=== PATIENT | female | born 1985 | race Caucasian/White ===

== ENCOUNTER → 2021-08-31 | Outpatient (CLI) | payer BC | LOC: KOH-I 09:39 | DX: M25.552 Pain in left hip (principal); R06.02 Shortness of breath | CPT/HCPCS: 71046; 73502 ==

== ENCOUNTER → 2021-11-09 | Outpatient (CLI) | payer BC | LOC: HEART 5 13:39 | DX: R06.02 Shortness of breath (principal) | CPT/HCPCS: 94010; 94729; 95012 ==

== ENCOUNTER → 2021-11-22 | Outpatient (CLI) | payer BC | LOC: RAD 09:00 | DX: M25.512 Pain in left shoulder (principal) | CPT/HCPCS: 73040; 73222; A9577; Q9967 ==

== ENCOUNTER → 2021-11-25 | Outpatient (CLI) | payer BC | LOC: HEART 5 08:49 | DX: R06.00 Dyspnea, unspecified (principal) | CPT/HCPCS: J7674 ==

== ENCOUNTER → 2022-01-03 | Outpatient (CLI) | payer BC | LOC: ECHO 12-30 09:45 | DX: R06.02 Shortness of breath (principal) | CPT/HCPCS: ECHO; 93306 ==